=== PATIENT | male | born 1995 | race Caucasian/White ===

== ENCOUNTER → 2018-03-22 10:24 | Outpatient (CLI) | payer OTHER, SELFPAY | PROVIDERS: Visit Provider Physician Assistant | DX: J02.9 Acute pharyngitis, unspecified (principal) | CPT/HCPCS: 87070 ==

== ENCOUNTER → 2018-03-22 10:33 | Outpatient (CLI) | payer OTHER, SELFPAY ==
[2018-03-22 11:17] LABS: Monotest Positive (Negative)
== END ==
PROVIDERS: Visit Provider Physician Assistant
DX: J02.9 Acute pharyngitis, unspecified (principal)
CPT/HCPCS: 36415; 86318; 87070; 87077; 87147